=== PATIENT | male | born 1990 | race Hispanic/Latino ===

== ENCOUNTER 2018-10-09 13:46 | Observation (INO) | payer OTHER ==
[~2018-10-09] VITALS: Ht 167.6 cm; Wt 117.0 kg
[~2018-10-09 13:46] MED LIST: D3 PO; MELA1TAB15 PO; SIMV40TA59 PO; VITA1CAP17 PO
[2018-10-09] MEDS ORDERED: SODIUM CHLORIDE 0.9% 1000ML 1,000 ML IV SCH (14:15)
[2018-10-09] MEDS ORDERED: ONDANSETRON HCL 4 MG/2 ML VIAL ONE (14:35)
[2018-10-09 15:30] VITALS: BP 152/78
[2018-10-09 16:05] LABS: BASOPHILS % (AUTO) 0.7 % (0.0-5.0); EOSINOPHILS % (AUTO) 0.3 % (0.0-8.0); HEMATOCRIT 23.5 % (42-54); LYMPHOCYTES % (AUTO) 19.3 % (21.0-51.0); MEAN CORPUSCULAR HEMOGLOBIN 21.3 pg (27.0-33.0); MEAN CORPUSCULAR HGB CONC 29.6 g/dL (32.0-36.0); MEAN CORPUSCULAR VOLUME 71.9 fL (79-99); MONOCYTES % (AUTO) 8.1 % (3.0-13.0); NEUTROPHILS % (AUTO) 71.6 % (40.0-77.0); NUCLEATED RED BLOOD CELLS 0.1 % (0.0-0.19); PLATELET COUNT (AUTO) 49 K/uL (130-400); RED BLOOD CELL COUNT(AUTO) 3.28 MIL/uL (4.50-6.20); RED CELL DISTRIBUTION WIDTH 24.5 % (11.0-15.5)
[2018-10-09 16:18] LABS: INR 1.55 (0.85-1.15); PROTHROMBIN TIME 16.1 SEC (9.6-11.6)
[2018-10-09 16:19] LABS: CREATININE 0.7 mg/dL (0.5-1.5); POTASSIUM 3.5 mmol/L (3.5-5.1)
[2018-10-09] MEDS ORDERED: ACETAMINOPHEN 325 MG TAB ONE (17:47)
[2018-10-09] MEDS ORDERED: ACETAMINOPHEN 325 MG TAB PO ONE (18:55)
[2018-10-09 19:29] VITALS: BP 123/57
--- NOTE | 2018-10-09 19:40 | NUR ---
BLOOD TRANSFUSION PATIENT AWAKE AND ALERT, NO COMPLAINTS OF PAIN VOICED AT THIS TIME. FIRST UNIT OF PACKED RBCS GIVEN. TOLERATED WELL. NO ADVERSE REACTIONS NOTED. VITALS STABLE. AFEBRILE. TOLERATING PO DIET WELL. VOIDING WITHOUT DIFFICULTY. BM NOTED TO BE BROWN AND SOFT FORMED. NO NAUSEA OR VOMITING NOTED. UP WITH MINIMAL ASSIST. CALL LIGHT WITHIN REACH. WILL CONTINUE TO BE OBSERVED. Addendum: 10/09/18 at 3777 by EDNA GARZA RN RN Amended: Links added.
[2018-10-09 23:06] VITALS: BP 126/71
[2018-10-10] VITALS (24 sets, daily range): BP systolic 103–146; BP diastolic 51–85
[2018-10-10 02:56] LABS: HEMATOCRIT 28.1 % (42-54)
--- NOTE | 2018-10-10 11:11 | NUR ---
TO GI LAB PATIENT TRANSPORTED TO GI LAB FOR EGD IN STABLE CONDITION.
--- NOTE | 2018-10-10 13:15 | NUR ---
DEBRA NOTE PT OFF FLOOR- WILL TRY TO DO IA LATER Addendum: 10/10/18 at 1622 by LAZARO ESPINOZA RN CM Amended: Links added.
[2018-10-10] MEDS ORDERED: PROPOFOL 10 MG/ML 20ML VIAL IV ONE ×2 (13:30→13:43)
--- NOTE | 2018-10-10 14:55 | NUR ---
BACK FROM GI LAB PATIENT HAS RETURNED TO ROOM S/P EGD. APPEARS STABLE, HE IS AWAKE AND ALERT. FAMILY IS PRESENT IN ROOM. HE WILL BE PLACED ON POST OP V/S FOR NOW. WILL CONTINUE TO MONITOR.
--- NOTE | 2018-10-10 18:15 | NUR ---
INSTRUCTIONS DISCHARGE INSTRUCTIONS GIVEN TO PATIENT AND FAMILY USING TEACH BACK. F/U APPOINTMENT IS MADE. NO NEW PRESCRIPTIONS. ALL PRINTED INFORMATION AND MD INSTRUCTIONS PLACED IN DISCHARGE PACKET. NO QUESTIONS OR CONCERNS VOICED. IV REMOVED WITH TIP INTACT. DIRECT PRESSURE APPLIED UNTIL BLEEDING CONTROLLED THEN SITE COVERED WITH GAUZE AND SECURED WITH TAPE.
== END 2018-10-10 18:30 | disposition home or self-care (01) ==
LOC: EDH 13:46 → EDHIP 13:47 → 4BH 15:10
PROVIDERS: ADMIT Internal Medicine Hematology & Oncology; ATTEND Internal Medicine Hematology & Oncology
DX: K92.2 Gastrointestinal hemorrhage, unspecified (principal); D50.0 Iron deficiency anemia secondary to blood loss (chronic); K31.89 Other diseases of stomach and duodenum; D69.6 Thrombocytopenia, unspecified; E78.5 Hyperlipidemia, unspecified; R04.0 Epistaxis; Z87.891 Personal history of nicotine dependence; Z80.1 Family history of malignant neoplasm of trachea, bronchus and lung; Z80.42 Family history of malignant neoplasm of prostate; Z80.8 Family history of malignant neoplasm of other organs or systems; Z82.49 Family history of ischemic heart disease and other diseases of the circulatory system; Z79.899 Other long term (current) drug therapy
CPT/HCPCS: 36415 ×2; 36430; 43235; 76700; 80048; 85014; 85018; 85025; 85610; 86850; 86900; 86901; 86922 ×2; 99284; G0378 ×25; J2405; J2704 ×2; P9016 ×2